=== PATIENT | female | born 1955 | race Two or more races ===

== ENCOUNTER 2016-10-26 20:29 | Inpatient (IN) | payer MEDICAID ==
[~2016-10-26] VITALS: Ht 177.8 cm; Wt 117.9 kg
[~2016-10-26 20:29] MED LIST: ATOR10TA52 PO; ATOR20TA50 PO; BEN10T PO; BENA10TA3 PO; DICY10CA55 PO; FUR40T PO; FURO40TA4 PO; GABA-494 PO; GABA300C8 PO; OMEP20CA5 PO; OXYC325T14 PO; POT8T PO; POTA10TA34 PO
[2016-10-26 21:27] LABS: Basophils # (auto) 0 uL; Eosinophils # (auto) 0.2 uL; Eosinophils % (auto) 1.5 % (0.0-7.0); Hematocrit 43.8 % (36.0-46.0); Hemoglobin 14.1 g/dL (12.2-16.2); Lymphocytes # (auto) 2.8 uL; Mean Corpuscular Hemoglobin 29.3 pg (28.0-32.0); Mean Corpuscular Hgb Conc. 32.1 g/dL (32.0-36.0); Mean Corpuscular Volume 91.2 fL (80.0-100.0); Mean Platelet Volume 7.3 fL (7.4-10.4); Monocytes # (auto) 0.6 uL; Monocytes % (auto) 4.4 % (0.0-12.0); Neutrophils # (auto) 9.8 uL; Neutrophils % (auto) 73.1 % (37.0-80.0); Platelet Count (auto) 401 10^3/uL (140-450); Red Cell Distribution Width 15.9 % (11.6-16.0); White Blood Cell 13.5 10^3/uL (4.4-10.8)
[2016-10-26 21:42] LABS: INR 0.94 (0.9-1.15); Partial Thromboplastin Time 25.7 sec (22.64-33.71); Prothrombin Time 9.7 sec (9.37-12.3)
[2016-10-26 21:46] LABS: Albumin 3.4 g/dL (3.4-5.0); BUN/Creatinine Ratio 17.3; Bilirubin, Total 0.2 mg/dL (0.2-1.0); Calcium 9.2 mg/dL (8.5-10.1); Potassium 3.5 mmol/L (3.5-5.1); Total Protein 7.5 g/dL (6.4-8.2)
[2016-10-26 21:50] LABS: B-Type Natriuretic Peptide 3.47 pg/mL (0-100)
[2016-10-26 21:55] LABS: Temperature: 22.7 C (20.0-25.0)
[2016-10-27] MEDS ORDERED: HYDROcodone-ACET 5/325MG TAB PO PRN (12:15)
[2016-10-27] MEDS ORDERED: NITROGLYCERIN 0.4 MG SL TAB SL PRN (12:15)
[2016-10-27] MEDS ORDERED: LACTULOSE 20Gm/30ML SOLN PO PRN (12:15)
[2016-10-27] MEDS ORDERED: LORazepam 0.5 MG TAB PO PRN (12:15)
[2016-10-27] MEDS ORDERED: ACETAMINOPHEN 500 MG TAB PO PRN (12:15)
[2016-10-27] MEDS ORDERED: DEXTROSE (50%) 50ML SYRG IV PRN (12:15)
[2016-10-27] MEDS ORDERED: PROMETHAZINE HCL 25 MG/ML 1ML IV PRN (12:15)
[2016-10-27] MEDS ORDERED: MORPHINE SULF INJ 2 MG/ML SYRINGE 1ML IV PRN (12:15)
[2016-10-27] MEDS ORDERED: ALBUTEROL SULF 2.5 MG/0.5ML(0.5%) NEB SOLN NEB PRN (12:15)
[2016-10-27] MEDS ORDERED: cefTRIAXone 1GM/50ML D5W 50 ML IV ONE (12:15)
[2016-10-27] MEDS ORDERED: TEMAZEPAM 15 MG CAP PO PRN (12:15)
[2016-10-27] MEDS ORDERED: NITROGLYCERIN 0.2MG/HR TOPICAL PATCH TD ONE (12:45)
[2016-10-27] MEDS ORDERED: GABAPENTIN 300 MG CAP PO ONE (13:00)
[2016-10-27] MEDS ORDERED: ENOXAPARIN SOD 40 MG/0.4 ML SYRINGE SC ONE (13:00)
[2016-10-27] MEDS ORDERED: ASPirin 81 mg TAB PO ONE (13:00)
[2016-10-27] MEDS ORDERED: ATORVASTATIN 20 MG TAB PO ONE (13:00)
[2016-10-27] MEDS: SODIUM CHLORIDE 0.9% 1,000 ML IV SCH ×2 (13:11→22:15)
[2016-10-27] MEDS ORDERED: LEVOTHYROXINE SODIUM 25 MCG TAB PO ONE (13:15)
[2016-10-27] MEDS: PANTOPRAZOLE 40 MG TAB PO SCH (13:20)
[2016-10-27] MEDS: MORPHINE SULF INJ 2 MG/ML SYRINGE 1ML IV PRN ×3 (13:20→23:37)
[2016-10-27 13:44] LABS: Amylase 17 U/L (25-115)
[2016-10-27] MEDS: InsuLIN REG 1unit/0.01ml Soln (100units/ml) SC SCH ×2 (17:06→22:00)
[2016-10-27] MEDS: ACCU-CHEK COMFORT CURVE STRIP VI SCH ×2 (17:06→22:00)
[2016-10-27 19:00] VITALS: BP 152/95
[2016-10-27] MEDS ORDERED: FAMOTIDINE 20 MG TAB PO SCH (22:00)
[2016-10-27] MEDS ORDERED: ATORVASTATIN 20 MG TAB PO SCH (22:00)
[2016-10-27] MEDS: METOPROLOL TARTRATE 25 MG TAB PO SCH (23:11)
[2016-10-27] MEDS: BENAZEPRIL HCL 10 MG TAB PO SCH (23:12)
[2016-10-27] MEDS: GABAPENTIN 300 MG CAP PO SCH (23:12)
[2016-10-28 05:00] VITALS: BP 122/71
[2016-10-28] MEDS: MORPHINE SULF INJ 2 MG/ML SYRINGE 1ML IV PRN ×2 (05:39→12:03)
[2016-10-28 05:47] LABS: Basophils # (auto) 0.1 uL; Basophils % (auto) 1.3 % (0.0-2.0); Eosinophils # (auto) 0.2 uL; Eosinophils % (auto) 1.4 % (0.0-7.0); Hematocrit 42.5 % (36.0-46.0); Hemoglobin 13.6 g/dL (12.2-16.2); Lymphocytes % (auto) 25.5 % (10.0-50.0); Mean Corpuscular Hemoglobin 29.1 pg (28.0-32.0); Mean Corpuscular Volume 91.1 fL (80.0-100.0); Mean Platelet Volume 7.6 fL (7.4-10.4); Monocytes # (auto) 0.7 uL; Monocytes % (auto) 5.9 % (0.0-12.0); Neutrophils # (auto) 7.7 uL; Neutrophils % (auto) 65.9 % (37.0-80.0); Platelet Count (auto) 368 10^3/uL (140-450); Red Cell Distribution Width 15.2 % (11.6-16.0); White Blood Cell 11.6 10^3/uL (4.4-10.8)
[2016-10-28 06:36] LABS: Albumin 3.1 g/dL (3.4-5.0); BUN/Creatinine Ratio 19.2; Bilirubin, Total 0.3 mg/dL (0.2-1.0); Calcium 9.3 mg/dL (8.5-10.1); Potassium 3.6 mmol/L (3.5-5.1); Total Protein 6.9 g/dL (6.4-8.2)
[2016-10-28] MEDS: InsuLIN REG 1unit/0.01ml Soln (100units/ml) SC SCH ×2 (07:00→12:27)
[2016-10-28] MEDS ORDERED: LEVOTHYROXINE SODIUM 25 MCG TAB PO SCH (07:00)
[2016-10-28] MEDS: ACCU-CHEK COMFORT CURVE STRIP VI SCH ×2 (07:04→11:30)
[2016-10-28] MEDS ORDERED: cefTRIAXone 1GM/50ML D5W 50 ML IV SCH (09:00)
[2016-10-28] MEDS: SODIUM CHLORIDE 0.9% 1,000 ML IV SCH (09:18)
[2016-10-28] MEDS ORDERED: NITROGLYCERIN 0.2MG/HR TOPICAL PATCH TD SCH (10:00)
[2016-10-28] MEDS ORDERED: ATORVASTATIN 20 MG TAB PO SCH (10:00)
[2016-10-28] MEDS ORDERED: ENOXAPARIN SOD 40 MG/0.4 ML SYRINGE SC SCH (10:00)
[2016-10-28] MEDS ORDERED: ASPirin 81 mg TAB PO SCH (10:00)
[2016-10-28 10:17] VITALS: BP 150/83
[2016-10-28] MEDS: GABAPENTIN 300 MG CAP PO SCH (10:29)
[2016-10-28] MEDS: PANTOPRAZOLE 40 MG TAB PO SCH (10:29)
[2016-10-28] MEDS: METOPROLOL TARTRATE 25 MG TAB PO SCH (10:30)
[2016-10-28] MEDS: BENAZEPRIL HCL 10 MG TAB PO SCH (10:31)
[2016-10-28 12:42] VITALS: BP 146/72
[2016-10-28 14:14] VITALS: BP 132/64
== END 2016-10-28 15:00 | disposition home or self-care (01) | DRG 243 ==
LOC: ER 20:45 → TELE 20:46 → TELE-EAST 10-27 18:32
PROVIDERS: ADMIT Internal Medicine; ATTEND Family Medicine
DX: K21.9 Gastro-esophageal reflux disease without esophagitis (principal); E11.22 Type 2 diabetes mellitus with diabetic chronic kidney disease; E66.01 Morbid (severe) obesity due to excess calories; I10 Essential (primary) hypertension; I25.10 Atherosclerotic heart disease of native coronary artery without angina pectoris; E03.9 Hypothyroidism, unspecified; F17.210 Nicotine dependence, cigarettes, uncomplicated; G89.29 Other chronic pain; M54.9 Dorsalgia, unspecified; J45.909 Unspecified asthma, uncomplicated; E11.65 Type 2 diabetes mellitus with hyperglycemia; M19.90 Unspecified osteoarthritis, unspecified site; E78.5 Hyperlipidemia, unspecified; I12.9 Hypertensive chronic kidney disease with stage 1 through stage 4 chronic kidney disease, or unspecified chronic kidney disease; F41.9 Anxiety disorder, unspecified; J44.9 Chronic obstructive pulmonary disease, unspecified; N18.9 Chronic kidney disease, unspecified; Z90.49 Acquired absence of other specified parts of digestive tract; Z90.710 Acquired absence of both cervix and uterus; Z82.49 Family history of ischemic heart disease and other diseases of the circulatory system; Z83.2 Family history of diseases of the blood and blood-forming organs and certain disorders involving the immune mechanism; Z82.3 Family history of stroke; Z85.9 Personal history of malignant neoplasm, unspecified; Z85.41 Personal history of malignant neoplasm of cervix uteri; Z68.37 Body mass index [BMI] 37.0-37.9, adult; Z83.3 Family history of diabetes mellitus
CPT/HCPCS: 36415; 71010; 74176; 80053; 80061; 82150; 82550; 82962; 83036; 83690; 83880; 84439; 84443; 84481; 84484; 85025; 85379; 85610; 85652; 85730; 86141; 93005; 93970; 96365; 96366; 96372; J0696; J1815

== ENCOUNTER 2017-01-28 13:10 | Emergency (ER) | payer MEDICAID ==
[~2017-01-28] VITALS: Ht 177.8 cm; Wt 117.5 kg
[~2017-01-28 13:10] MED LIST changes: -ATOR10TA52 PO; -BEN10T PO; -FUR40T PO; -OXYC325T14 PO
[2017-01-28 14:27] VITALS: BP 110/76
[2017-01-28] MEDS ORDERED: NALBUPHINE HCL 10 MG/1ml INJECTION IM ONE (15:30)
== END 2017-01-28 15:47 | disposition home or self-care (01) ==
LOC: ER 13:10
DX: G89.29 Other chronic pain (principal); M54.42 Lumbago with sciatica, left side; F17.210 Nicotine dependence, cigarettes, uncomplicated; M19.90 Unspecified osteoarthritis, unspecified site; J45.909 Unspecified asthma, uncomplicated; I25.10 Atherosclerotic heart disease of native coronary artery without angina pectoris; J44.9 Chronic obstructive pulmonary disease, unspecified; E11.22 Type 2 diabetes mellitus with diabetic chronic kidney disease; K21.9 Gastro-esophageal reflux disease without esophagitis; E78.5 Hyperlipidemia, unspecified; N18.9 Chronic kidney disease, unspecified; I12.9 Hypertensive chronic kidney disease with stage 1 through stage 4 chronic kidney disease, or unspecified chronic kidney disease; E07.9 Disorder of thyroid, unspecified; Z90.49 Acquired absence of other specified parts of digestive tract; Z90.710 Acquired absence of both cervix and uterus; Z91.041 Radiographic dye allergy status; Z88.6 Allergy status to analgesic agent; Z88.8 Allergy status to other drugs, medicaments and biological substances
CPT/HCPCS: 96372; 99283; J2300

== ENCOUNTER 2017-10-07 15:47 | Emergency (ER) | payer MEDICAID ==
[~2017-10-07] VITALS: Ht 177.8 cm; Wt 117.9 kg
[~2017-10-07 15:47] MED LIST changes: -BENA10TA3 PO; +BENA10TA9 PO; +GABA-497 PO; -GABA300C8 PO; -OMEP20CA5 PO; +OMEP20CA74 PO
[2017-10-07 16:00] VITALS: BP 133/84
[2017-10-07 17:06] LABS: Basophils # (auto) 0 uL; Basophils % (auto) 0.3 % (0.0-2.0); Eosinophils # (auto) 0.2 uL; Hematocrit 44.7 % (36.0-46.0); Hemoglobin 14.7 g/dL (12.2-16.2); Lymphocytes # (auto) 4.1 uL; Lymphocytes % (auto) 26.7 % (10.0-50.0); Mean Corpuscular Hemoglobin 33.1 pg (28.0-32.0); Mean Corpuscular Hgb Conc. 32.9 g/dL (32.0-36.0); Mean Corpuscular Volume 100.6 fL (80.0-100.0); Mean Platelet Volume 7.1 fL (6.9-10.8); Monocytes # (auto) 0.8 uL; Monocytes % (auto) 5.3 % (0.0-12.0); Neutrophils # (auto) 10.2 uL; Neutrophils % (auto) 66.7 % (37.0-80.0); Nucleated Red Blood Cells % 0.1 %; Platelet Count (auto) 401 10^3/uL (140-450); Red Cell Distribution Width 14.4 % (11.8-14.3); White Blood Cell 15.3 10^3/uL (4.4-10.8)
[2017-10-07 17:18] LABS: Urine RBC None Seen /hpf (0 - 4)
[2017-10-07 17:22] LABS: Albumin 3.4 g/dL (3.4-5.0); BUN/Creatinine Ratio 12.8; Calcium 8.9 mg/dL (8.5-10.1); Magnesium 2.3 mg/dL (1.6-2.6); Potassium 4.1 mmol/L (3.5-5.1)
[2017-10-07 17:25] LABS: Bilirubin, Total 0.2 mg/dL (0.2-1.0)
[2017-10-07 17:31] LABS: Urine Bilirubin Negative (Negative); Urine Blood Negative /uL (Negative); Urine Color Yellow (Yellow); Urine Glucose Normal (Normal); Urine Ketone Negative (Negative); Urine Mucus FEW (None Seen); Urine Nitrite Negative (Negative); Urine Squamous Epithelial Cell FEW /hpf (<5); Urine Urobilinogen Normal (Negative)
[2017-10-07 17:36] LABS: Urine Hyaline Cast 0 /lpf (0 - 2)
[2017-10-07] MEDS ORDERED: HYDROcodone-ACET 10/325MG TAB PO ONE ×2 (19:30)
== END 2017-10-07 20:23 | disposition home or self-care (01) ==
LOC: ER 15:50
DX: J20.9 Acute bronchitis, unspecified (principal); G89.4 Chronic pain syndrome; F17.210 Nicotine dependence, cigarettes, uncomplicated; M19.90 Unspecified osteoarthritis, unspecified site; J44.9 Chronic obstructive pulmonary disease, unspecified; K21.9 Gastro-esophageal reflux disease without esophagitis; I12.9 Hypertensive chronic kidney disease with stage 1 through stage 4 chronic kidney disease, or unspecified chronic kidney disease; E11.22 Type 2 diabetes mellitus with diabetic chronic kidney disease; N18.9 Chronic kidney disease, unspecified; E07.89 Other specified disorders of thyroid; Z90.710 Acquired absence of both cervix and uterus; Z90.49 Acquired absence of other specified parts of digestive tract; Z79.899 Other long term (current) drug therapy; Z88.8 Allergy status to other drugs, medicaments and biological substances
CPT/HCPCS: 36415; 71010; 80053; 81001; 83735; 84484; 85025; 93005